=== PATIENT | female | born 1965 | race Caucasian/White ===

== ENCOUNTER 2022-12-17 16:25 | Emergency (ER) | payer OTHER ==
[~2022-12-17] VITALS: Ht 167.6 cm; Wt 90.7 kg
[2022-12-17] MEDS ORDERED: AMLODIPINE BESYL5 MG PO (16:44)
[2022-12-17] MEDS ORDERED: ATORVASTATIN CA10 M1 PO (16:44)
[2022-12-17] MEDS ORDERED: SEPTDS PO (18:48)
[2022-12-17] MEDS ORDERED: PERCOCET 5-3251 EACH PO (18:48)
[2022-12-17] MEDS ORDERED: ONDANSETRON4 MG SL (19:23)
== END 2022-12-17 19:28 | disposition home or self-care (01) ==
LOC: ED 16:25
DX: S42.332A Displaced oblique fracture of shaft of humerus, left arm, initial encounter for closed fracture (principal); S01.01XA Laceration without foreign body of scalp, initial encounter; Z79.899 Other long term (current) drug therapy; W22.8XXA Striking against or struck by other objects, initial encounter; Y93.I9 Activity, other involving external motion; Y92.89 Other specified places as the place of occurrence of the external cause; Y99.9 Unspecified external cause status